=== PATIENT | male | born 1995 | race African-American/Black ===

== ENCOUNTER 2020-03-16 14:05 | Emergency (ER) | payer OTHER ==
[~2020-03-16] VITALS: Ht 185.4 cm; Wt 90.7 kg
[2020-03-16 15:45] LABS: ABSOLUTE EOSINOPHILS 0.2 thou/uL (0.0-0.7); ABSOLUTE LYMPHOCYTES 1.9 thou/uL (0.8-5.3); ABSOLUTE MONOCYTES 0.5 thou/uL (0.0-1.2); ABSOLUTE NEUTROPHILS 1.5 thou/uL (1.6-8.1); BASOPHILS 0.9 %; EOSINOPHILS 4.4 %; HEMATOCRIT 43.8 % (42.0-52.0); HEMOGLOBIN 14.6 gm/dL (14.0-18.0); LYMPHOCYTES 47.1 %; MCH 28.4 pg (26.0-34.0); MCHC 33.4 g/dL (28.0-37.0); MCV 84.9 fL (80.0-100.0); MONOCYTES 11.6 %; NUCLEATED RBCS 0 /100WBC; PLATELET COUNT* 272 thou/uL (150-400); RBC 5.16 mil/uL (4.50-6.00); RDW-CV 13.2 % (10.5-14.5); WBC 4.1 thou/uL (4.0-11.0)
[2020-03-16 15:54] LABS: CALCIUM 9.3 mg/dL (8.5-10.1); CREATININE 1.6 mg/dL (0.6-1.3)
[2020-03-16 15:59] LABS: ALBUMIN 4.3 g/dL (3.4-5.0); TOTAL BILIRUBIN 0.8 mg/dL (<0.1-1.0); TOTAL PROTEIN 8.5 g/dL (6.4-8.2)
[2020-03-16 16:07] LABS: INFLUENZA A ANTIGEN Negative (Negative); INFLUENZA B ANTIGEN Negative (Negative)
[2020-03-16] MEDS ORDERED: AUGMENTIN 875-1 EACH PO (16:21)
[2020-03-16] MEDS ORDERED: MUCINEX600 MG PO (16:21)
[2020-03-16 16:45] VITALS: BP 138/82
== END 2020-03-16 16:46 | disposition home or self-care (01) ==
LOC: M.ERS 14:05
PROVIDERS: Nurse Practitioner Family
DX: J32.9 Chronic sinusitis, unspecified (principal); Z20.828 Contact with and (suspected) exposure to other viral communicable diseases; G43.909 Migraine, unspecified, not intractable, without status migrainosus

== ENCOUNTER 2020-11-15 18:49 | Inpatient (IN) | payer OTHER ==
[~2020-11-15] VITALS: Ht 185.4 cm; Wt 87.0 kg
[~2020-11-15 18:49] MED LIST: AUGMENTIN 875-1 EACH PO; MUCINEX600 MG PO
[2020-11-15 19:03] VITALS: BP 140/93
[2020-11-15] MEDS ORDERED: CEPHALEXIN500 MG PO (19:04)
[2020-11-15 20:11] LABS: HEMATOCRIT 32.4 % (42.0-52.0); HEMOGLOBIN 11.2 gm/dL (14.0-18.0); MCH 30.7 pg (26.0-34.0); MCHC 34.7 g/dL (28.0-37.0); MCV 88.5 fL (80.0-100.0); NUCLEATED RBCS 0 /100WBC; PLATELET COUNT* 343 thou/uL (150-400); RBC 3.66 mil/uL (4.50-6.00); WBC 9.5 thou/uL (4.0-11.0)
[2020-11-15 20:22] LABS: CALCIUM 8.7 mg/dL (8.5-10.1); CREATININE 1.5 mg/dL (0.6-1.3)
[2020-11-15 20:26] LABS: ALBUMIN 3.8 g/dL (3.4-5.0); TOTAL BILIRUBIN 6.6 mg/dL (<0.1-1.0); TOTAL PROTEIN 7.8 g/dL (6.4-8.2)
[2020-11-15 21:38] LABS: ABSOLUTE EOSINOPHILS 0.3 thou/uL (0.0-0.7); ABSOLUTE LYMPHOCYTES 1.7 thou/uL (0.8-5.3); ABSOLUTE NEUTROPHILS 6.6 thou/uL (1.6-8.1); PLATELET ESTIMATE ADEQUATE
[2020-11-15 22:15] VITALS: BP 121/78
[2020-11-16 07:35] VITALS: BP 101/64
[2020-11-16 07:53] LABS: HEMATOCRIT 30.4 % (42.0-52.0); HEMOGLOBIN 10.3 gm/dL (14.0-18.0); MCH 30.1 pg (26.0-34.0); MCV 88.4 fL (80.0-100.0); MPV 8.2 fl. (7.2-11.1); RBC 3.44 mil/uL (4.50-6.00); RDW-CV 12.9 % (10.5-14.5); WBC 8.8 thou/uL (4.0-11.0)
[2020-11-16 09:07] LABS: BUN 28.4 mg/dL (7-18); CREATININE 1.4 mg/dL (0.6-1.3); POTASSIUM 3.8 mmol/L (3.5-5.1)
[2020-11-16 13:17] LABS: URINE BILIRUBIN NEGATIVE (Negative); URINE BLOOD 1+ (Negative); URINE CLARITY CLEAR; URINE COLOR YELLOW; URINE GLUCOSE-RANDOM NEGATIVE (Negative); URINE KETONES NEGATIVE (Negative); URINE LEUKOCYTES-REFLEX NEGATIVE (Negative); URINE NITRITE-REFLEX NEGATIVE (Negative); URINE PROTEIN TRACE (Negative); URINE SPECIFIC GRAVITY 1.025 (1.005-1.030)
[2020-11-16 13:23] LABS: SQUAMOUS NONE SEEN /LPF (0-3); URINE RBC None Seen /HPF (0-2); URINE WBC-REFLEX None Seen /HPF (0-5)
[2020-11-16 13:24] LABS: BACTERIA-REFLEX 1-9 Few /HPF (None Seen); CASTS None Seen /LPF (None Seen); CRYSTALS None Seen /LPF (None Seen); MUCUS None Seen strn/LPF (None Seen)
[2020-11-16 15:37] VITALS: BP 107/68
[2020-11-16 17:55] LABS: AMP/METHAMP Negative (Negative); BARBITURATES Negative (Negative); BENZODIAZEPINES Negative (Negative); COCAINE Negative (Negative); METHADONE Negative (Negative); OPIATES Negative (Negative); PCP Negative (Negative); THC Negative (Negative)
[2020-11-16 20:00] VITALS: BP 103/64
[2020-11-17 04:16] LABS: ABSOLUTE BASOPHILS 0.1 thou/uL (0.0-0.2); ABSOLUTE EOSINOPHILS 0.3 thou/uL (0.0-0.7); ABSOLUTE LYMPHOCYTES 2.6 thou/uL (0.8-5.3); ABSOLUTE MONOCYTES 0.9 thou/uL (0.0-1.2); ABSOLUTE NEUTROPHILS 4.7 thou/uL (1.6-8.1); BASOPHILS 0.7 %; EOSINOPHILS 3.9 %; HEMATOCRIT 30.4 % (42.0-52.0); HEMOGLOBIN 10.4 gm/dL (14.0-18.0); LYMPHOCYTES 30.4 %; MCH 30.2 pg (26.0-34.0); MCHC 34.1 g/dL (28.0-37.0); MCV 88.6 fL (80.0-100.0); MONOCYTES 10.1 %; MPV 8.3 fl. (7.2-11.1); NUCLEATED RBCS 0 /100WBC; PLATELET COUNT* 349 thou/uL (150-400); POLYS 54.9 %; RBC 3.44 mil/uL (4.50-6.00); RDW-CV 12.9 % (10.5-14.5); WBC 8.6 thou/uL (4.0-11.0)
[2020-11-17 04:38] LABS: CALCIUM 8.4 mg/dL (8.5-10.1); CREATININE 1.3 mg/dL (0.6-1.3)
[2020-11-17 04:42] LABS: DIRECT BILIRUBIN 0.2 mg/dL (<0.1-0.3); TOTAL BILIRUBIN 1.4 mg/dL (<0.1-1.0)
[2020-11-17 08:00] VITALS: BP 115/71
[2020-11-17 16:00] VITALS: BP 99/52
[2020-11-17 19:40] VITALS: BP 107/64
[2020-11-18 08:10] VITALS: BP 111/56
[2020-11-18] MEDS ORDERED: VIBRAMYCIN 100100 M2 PO (08:51)
[2020-11-18] MEDS ORDERED: MIRALAX17 GM PO (08:51)
[2020-11-18 09:48] VITALS: BP 111/56
[2020-11-18 11:38] VITALS: BP 111/56
== END 2020-11-18 11:30 | disposition home or self-care (01) | DRG 603 ==
LOC: M.ERS 18:49 → M.TBA-ER 20:03 → M.ORTHSURG 22:27
PROVIDERS: Family Medicine; Internal Medicine; Physician Assistant; ADMIT Internal Medicine; ATTEND Internal Medicine
DX: L03.114 Cellulitis of left upper limb (principal); N17.9 Acute kidney failure, unspecified; I96 Gangrene, not elsewhere classified; D64.9 Anemia, unspecified; B35.3 Tinea pedis; E80.6 Other disorders of bilirubin metabolism; W57.XXXA Bitten or stung by nonvenomous insect and other nonvenomous arthropods, initial encounter; Y93.89 Activity, other specified; Y92.89 Other specified places as the place of occurrence of the external cause; Y99.8 Other external cause status